=== PATIENT | male | born 1970 | race Caucasian/White ===

== ENCOUNTER 2017-05-29 13:42 | Emergency (ER) | payer SELFPAY ==
[~2017-05-29] VITALS: Ht 175.3 cm; Wt 71.7 kg
[2017-05-29 13:52] VITALS: BP 126/94
--- NOTE | 2017-05-29 13:55 | NUR ---
PATIENT AMBULATED TO BED #11
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
--- NOTE | 2017-05-29 14:02 | NUR ---
x-ray at bedside
--- NOTE | 2017-05-29 14:33 | NUR ---
thumb spica placed to left wrist
[2017-05-29 14:34] VITALS: BP 128/84
== END 2017-05-29 14:34 | disposition home or self-care (01) ==
LOC: MED 13:42
DX: S63.602A Unspecified sprain of left thumb, initial encounter (principal); Y04.0XXA Assault by unarmed brawl or fight, initial encounter; Y93.89 Activity, other specified; Y92.89 Other specified places as the place of occurrence of the external cause; Y99.8 Other external cause status
CPT/HCPCS: 29125; 73130; 99284; Q0092